=== PATIENT | male | born 1940 | race Caucasian/White ===

== ENCOUNTER → 2020-04-10 | Outpatient (CLI) | payer OTHER ==
[~2020-04-10] MED LIST: ATIVAN1 MG PO; CELEXA; GABAPENTIN; IBUPROFEN 800800 M1 OR; NORCO 5-325 TA1 EACH PO; NORFLEX100 MG PO; RESTORIL; RESTORIL15 MG PO; TRICOR145 MG PO; VYTORIN 10-201 EACH PO
== END ==
LOC: SJCVCIMAG 08:14
PROVIDERS: ATTEND Internal Medicine Cardiovascular Disease
DX: I73.9 Peripheral vascular disease, unspecified (principal); E11.9 Type 2 diabetes mellitus without complications; E78.00 Pure hypercholesterolemia, unspecified; I65.23 Occlusion and stenosis of bilateral carotid arteries; F17.201 Nicotine dependence, unspecified, in remission; I77.811 Abdominal aortic ectasia

== ENCOUNTER → 2020-04-12 | Outpatient (CLI) | payer OTHER | LOC: SJCVCIMAG 10:51 | PROVIDERS: ATTEND Internal Medicine Cardiovascular Disease | DX: R06.00 Dyspnea, unspecified (principal); E11.51 Type 2 diabetes mellitus with diabetic peripheral angiopathy without gangrene; E78.5 Hyperlipidemia, unspecified; I10 Essential (primary) hypertension ==